=== PATIENT | male | born 1965 ===

== ENCOUNTER 2016-12-28 20:39 | Inpatient (IN) | payer MEDICAID, MEDICARE ==
[2016-12-28 21:07] VITALS: BP 139/97
[2016-12-28] MEDS: Sodium Chloride 0.9% 1,000 ML IV SCH (22:04)
[2016-12-29 06:03] LABS: % EOSINOPHILS 1.3 % (0.0-5.0); % LYMPHOCYTES 20.2 % (20.0-50.0); % NEUTROPHILS 73.5 % (40.0-80.0); HEMATOCRIT 37.5 % (39.0-49.0); HEMOGLOBIN 12.5 gm/dL (13.2-17.3); MEAN CELL VOLUME 91.2 fl (80-99); MEAN CORPUSCULAR HEMOGLOBIN 30.4 pg (26.0-30.0); MEAN CORPUSCULAR HGB CONC 33.3 pg (28.0-36.0); MEAN PLATELET VOLUME 8.5 fl; NEUTROPHILE ABSOLUTE 5.5 Th/cmm (1.8-8.0); PLATELET COUNT 188 Th/cmm (150-400); RED BLOOD COUNT 4.12 Mil/cmm (4.30-5.70); WHITE BLOOD COUNT 7.5 Th/cmm (4.8-10.8)
[2016-12-29 06:27] LABS: ALKALINE PHOSPHATASE 59 U/L (34-104); ANION GAP 9.1 (7.0-16.0); BILIRUBIN,TOTAL 0.5 mg/dL (0.3-1.0); BUN - UREA NITROGEN 12 mg/dL (7-25); CALCIUM SERUM 9.2 mg/dL (8.6-10.3); CARBON DIOXIDE 26.6 mEq/L (21.0-31.0); CHLORIDE 107 mEq/L (98-107); CREATININE - SERUM 0.8 mg/dL (0.7-1.3); GLUCOSE 164 mg/dL (70-105); POTASSIUM SERUM 3.7 mEq/L (3.5-5.1); SGOT 35 U/L (13-39); SGPT/ALT 37 U/L (7-52); SODIUM SERUM 139 mEq/L (136-145)
--- NOTE | 2016-12-29 09:27 | General Progress Note ---
Subjective - Review of Systems Service Date: 12/29/16 Subjective: I can not breath well. Objective - Results Result Diagrams: 12/29/16 05:54 12/29/16 05:54 Recent Labs: Laboratory Last Values WBC 7.5 Th/cmm (4.8-10.8) 12/29/16 05:54 RBC 4.12 Mil/cmm (4.30-5.70) L 12/29/16 05:54 Hgb 12.5 gm/dL (13.2-17.3) L 12/29/16 05:54 Hct 37.5 % (39.0-49.0) L 12/29/16 05:54 MCV 91.2 fl (80-99) 12/29/16 05:54 MCH 30.4 pg (26.0-30.0) H 12/29/16 05:54 MCHC Differential 33.3 pg (28.0-36.0) 12/29/16 05:54 RDW 13.0 % (11.5-20.0) 12/29/16 05:54 Plt Count 188 Th/cmm (150-400) 12/29/16 05:54 MPV 8.5 fl 12/29/16 05:54 Neutrophils % 73.5 % (40.0-80.0) 12/29/16 05:54 Lymphocytes % 20.2 % (20.0-50.0) 12/29/16 05:54 Monocytes % 5.0 % (2.0-10.0) 12/29/16 05:54 Eosinophils % 1.3 % (0.0-5.0) 12/29/16 05:54 Basophils % 0.0 % (0.0-2.0) 12/29/16 05:54 Sodium 139 mEq/L (136-145) 12/29/16 05:54 Potassium 3.7 mEq/L (3.5-5.1) 12/29/16 05:54 Chloride 107 mEq/L (98-107) 12/29/16 05:54 Carbon Dioxide 26.6 mEq/L (21.0-31.0) 12/29/16 05:54 Anion Gap 9.1 (7.0-16.0) 12/29/16 05:54 BUN 12 mg/dL (7-25) 12/29/16 05:54 Creatinine 0.8 mg/dL (0.7-1.3) 12/29/16 05:54 Est GFR ( Amer) > 60.0 ml/min (>90) 12/29/16 05:54 Est GFR (Non-Af Amer) > 60.0 ml/min 12/29/16 05:54 BUN/Creatinine Ratio 15.0 12/29/16 05:54 Glucose 164 mg/dL (70-105) H 12/29/16 05:54 Calcium 9.2 mg/dL (8.6-10.3) 12/29/16 05:54 Total Bilirubin 0.5 mg/dL (0.3-1.0) 12/29/16 05:54 AST 35 U/L (13-39) 12/29/16 05:54 ALT 37 U/L (7-52) 12/29/16 05:54 Alkaline Phosphatase 59 U/L (34-104) 12/29/16 05:54 B-Natriuretic Peptide 1560.0 pg/mL (5.0-100.0) H 12/29/16 05:54 Total Protein 6.3 gm/dL (6.0-8.3) 12/29/16 05:54 Albumin 3.2 gm/dL (4.2-5.5) L 12/29/16 05:54 Globulin 3.1 gm/dL 12/29/16 05:54 Albumin/Globulin Ratio 1.0 (1.0-1.8) 12/29/16 05:54 TSH 0.59 uIU/ml (0.34-5.60) 12/29/16 05:54 - Physical Exam Vitals and I&O: Vital Signs Temp 97.9 F 12/29/16 08:10 Pulse 70 12/29/16 08:56 Resp 16 12/29/16 08:10 BP 141/103 12/29/16 08:57 Pulse Ox 96 12/29/16 08:10 Intake & Output 12/28/16 12/29/16 12/29/16 18:59 06:59 18:59 Intake Total 360 Balance 360 Weight (lbs) 70 kg Intake: Oral 360 Other: # Voids 2 Active Medications: Current Medications Acetaminophen (Tylenol) 650 mg PO Q6H PRN PRN Reason: Pain or Fever >101 Stop: 02/26/17 22:06 Amlodipine Besylate (Norvasc) 5 mg PO DAILY [facility] Stop: 02/27/17 08:59 Last Admin: 12/29/16 08:56 Dose: 5 mg Clonidine HCl (Catapres) 0.1 mg PO Q8HR PRN PRN Reason: BP MAINTENANCE (PER PROTOCOL) Stop: 02/26/17 22:06 Furosemide (Lasix) 20 mg IVP DAILY [facility] Stop: 02/27/17 08:59 Last Admin: 12/29/16 08:57 Dose: 20 mg Sodium Chloride (Nacl 0.9%) 1,000 mls @ 75 mls/hr IV .[id number] [facility] Stop: 02/26/17 21:29 Last Admin: 12/28/16 22:04 Dose: 75 mls/hr Ondansetron HCl (Zofran) 4 mg IV Q6H PRN PRN Reason: Nausea / Vomiting Stop: 02/26/17 22:06 General: Alert, Oriented x3, Cooperative, Mild distress HEENT: Atraumatic Neck: Supple Cardiovascular: Regular rate Lungs: Clear to auscultation Abdomen: Bowel sounds Extremities: Other (No edema) Neurological: Normal gait Skin: Other (Warm and dry) Psych/Mental Status: Mental status NL Assessment/Plan - Assessment Assessment: Patient is awake, aler, calm, in some distress. Dx: CHF exacerbation, Uncontrolled HTN, Cocaine and methamphetamine user. - Plan Plan: Patient in NF, Lasix, amlodipine and clonidine. Cardiac consult requested.
--- NOTE | 2016-12-29 09:50 | Diagnostic Imaging Report ---
CHEST X-RAY: AP view INDICATION: CHF COMPARISON: None FINDINGS: No focal consolidation or radiographic evidence of CHF. Cardiomegaly is noted with atherosclerosis. The osseous structures are intact. IMPRESSION: No focal consolidation or radiographic evidence of CHF. Cardiomegaly and atherosclerotic vascular disease.
[2016-12-29] MEDS ORDERED: Potassium Chloride 20 mEq ER Tab PO ONE (12:28)
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
[2016-12-29] MEDS: Sodium Chloride 0.9% 1,000 ML IV SCH (13:57)
--- NOTE | 2016-12-29 18:59 | Cardiology ---
12/29/2016 ECHOCARDIOGRAM REPORT M-MODE ECHOCARDIOGRAM: Mitral valve, anterior leaflet of the mitral valve shows decreased excursion, EF velocity. Posterior leaflet of the mitral valve shows decreased excursion. Left ventricular posterior wall shows increased thickness, decreased excursion. Interventricular septum shows increased thickness, decreased excursion. There is hypertrophy of the left ventricle, ejection fraction 15%. Left atrium enlarged 4.02 cm. Aortic root shows normal dimension, normal excursion of aortic leaflets. CONCLUSION: Cardiomyopathy, minimal hypertrophy of the left ventricle. Left atrial enlargement, ejection fraction 15%. 2D ECHO: Long axis view shows enlarged left ventricular cavity with global hypokinesis, hypertrophy of the left ventricle. Left atrium enlarged. Aortic root shows normal dimension, normal excursion of aortic leaflets. Short axis view mitral valve normal, short axis aortic valve normal. Apical four chamber view shows enlarged left ventricular cavity with decreased ejection fraction. Left atrium enlarged. Right ventricular cavity, right atrium normal, no pericardial effusion. CONCLUSION: Hypertrophy of the left ventricle, cardiomyopathy, left atrial enlargement, ejection fraction 15%. Doppler study shows prominent A wave consistent with poor compliance of left ventricle. Moderate tricuspid regurgitation. [facility]# [id number]
--- NOTE | 2016-12-29 20:56 | Admit Criteria Form ---
Admit Criteria Forms - Admit Criteria Diagnosis: HEART FAILURE: COMMON COMPLICATIONS Clinical Indications for Inpatient Care (Place 'X' for any and all applicable criteria): Ongoing inpatient care may be indicated for heart failure with ANY ONE of the following (1)(2)(3)(4)(5): [ ]I. Ongoing need for care for primary condition requiring frequent therapy adjustments because of changes in cardiac function (eg, drug dosage changes for drugs that are renally metabolized) [ ]II. New-onset heart failure [ ]III. Heart failure with decreased urine output not responsive to attempts to optimize volume status [ ]IV. Acute cardiac ischemia causing or associated with failure [X]V. Complications of heart failure, including ANY ONE of the following: [ ]a) Pericardial effusion [ ]b) Symptomatic pleural effusion [ ]c) O2 saturation <90% or PO2 < 60 mm Hg (8.0 kPa) on room air or require baseline supplemental O2 [ ]d) Tachypnea [X]e) Dyspnea [ ]f) Syncope [ ]g) Change in mental status [ ]h) Acute renal insufficiency that is severe (reduction of more than 50% in estimated glomerular filtration rate from baseline) or progressive reduction of more than 25% in estimated glomerular filtration rate from baseline, with creatinine continuing to rise) [ ]i) Hemodynamic instability [ ]j) Anasarca [ ]k) Clinically significant metabolic abnormalities due to heart failure (eg, new-onset metabolic acidosis) Extended stay beyond goal length of stay for primary condition may be needed until ALL of the following are present(1)(3): [ ]a) Stable and effective diuretic regimen established (or patient on stable dialysis regimen if in chronic renal failure) [ ]b) Breathing comfortably at rest [ ]c) Saturation of arterial oxygen greater than 90% or at acceptable baseline [ ]d) Pulmonary edema absent or improved [ ]e) Hemodynamic stability [ ]f) Volume status acceptable on oral medication [ ]g) Peripheral or sacral edema absent or improved [ ]h) Renal function stable and manageable at a lower level of care [ ]i) Complications (eg, pleural effusion) resolved or manageable at a lower level of care [ ]j) Patient or caregiver has received written discharge instructions or educational material addressing activity level, diet, discharge medications, follow-up appointment, weight monitoring, and what to do if symptoms worsen The original [employer] content created by [employer] has been revised. The portions of the content which have been revised are identified through the use of italic text or in bold, and [employer] has neither reviewed nor approved the modified material.All other unmodified content is copyright [employer]. Please see references footnoted in the original [employer] edition 2016 Admit Criteria Met?: Yes
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
[2016-12-30 07:03] LABS: % BASOPHILS 0.1 % (0.0-2.0); % EOSINOPHILS 1.4 % (0.0-5.0); % LYMPHOCYTES 22.9 % (20.0-50.0); % MONOCYTES 6.2 % (2.0-10.0); % NEUTROPHILS 69.4 % (40.0-80.0); HEMATOCRIT 42.7 % (39.0-49.0); HEMOGLOBIN 13.8 gm/dL (13.2-17.3); MEAN CELL VOLUME 91.2 fl (80-99); MEAN CORPUSCULAR HEMOGLOBIN 29.6 pg (26.0-30.0); MEAN CORPUSCULAR HGB CONC 32.5 pg (28.0-36.0); MEAN PLATELET VOLUME 9.1 fl; NEUTROPHILE ABSOLUTE 6.2 Th/cmm (1.8-8.0); PLATELET COUNT 222 Th/cmm (150-400); RED BLOOD COUNT 4.68 Mil/cmm (4.30-5.70); RED CELL DISTRIBUTION WIDTH 12.9 % (11.5-20.0)
[2016-12-30 07:26] LABS: ALKALINE PHOSPHATASE 60 U/L (34-104); ANION GAP 11.3 (7.0-16.0); BILIRUBIN,TOTAL 0.6 mg/dL (0.3-1.0); BUN - UREA NITROGEN 12 mg/dL (7-25); BUN/CREATININE RATIO 13.3; CALCIUM SERUM 9.3 mg/dL (8.6-10.3); CARBON DIOXIDE 26.4 mEq/L (21.0-31.0); CHLORIDE 104 mEq/L (98-107); CREATININE - SERUM 0.9 mg/dL (0.7-1.3); GLUCOSE 152 mg/dL (70-105); POTASSIUM SERUM 3.7 mEq/L (3.5-5.1); SGOT 37 U/L (13-39); SGPT/ALT 39 U/L (7-52); SODIUM SERUM 138 mEq/L (136-145)
--- NOTE | 2016-12-30 09:14 | General Progress Note ---
Subjective - Review of Systems Service Date: 12/30/16 Subjective: I fell better Objective - Results Result Diagrams: 12/30/16 06:00 12/30/16 06:00 Recent Labs: Laboratory Last Values WBC 9.0 Th/cmm (4.8-10.8) 12/30/16 06:00 RBC 4.68 Mil/cmm (4.30-5.70) 12/30/16 06:00 Hgb 13.8 gm/dL (13.2-17.3) 12/30/16 06:00 Hct 42.7 % (39.0-49.0) D 12/30/16 06:00 MCV 91.2 fl (80-99) 12/30/16 06:00 MCH 29.6 pg (26.0-30.0) 12/30/16 06:00 MCHC Differential 32.5 pg (28.0-36.0) 12/30/16 06:00 RDW 12.9 % (11.5-20.0) 12/30/16 06:00 Plt Count 222 Th/cmm (150-400) 12/30/16 06:00 MPV 9.1 fl 12/30/16 06:00 Neutrophils % 69.4 % (40.0-80.0) 12/30/16 06:00 Lymphocytes % 22.9 % (20.0-50.0) 12/30/16 06:00 Monocytes % 6.2 % (2.0-10.0) 12/30/16 06:00 Eosinophils % 1.4 % (0.0-5.0) 12/30/16 06:00 Basophils % 0.1 % (0.0-2.0) 12/30/16 06:00 Sodium 138 mEq/L (136-145) 12/30/16 06:00 Potassium 3.7 mEq/L (3.5-5.1) 12/30/16 06:00 Chloride 104 mEq/L (98-107) 12/30/16 06:00 Carbon Dioxide 26.4 mEq/L (21.0-31.0) 12/30/16 06:00 Anion Gap 11.3 (7.0-16.0) 12/30/16 06:00 BUN 12 mg/dL (7-25) 12/30/16 06:00 Creatinine 0.9 mg/dL (0.7-1.3) 12/30/16 06:00 Est GFR ( Amer) > 60.0 ml/min (>90) 12/30/16 06:00 Est GFR (Non-Af Amer) > 60.0 ml/min 12/30/16 06:00 BUN/Creatinine Ratio 13.3 12/30/16 06:00 Glucose 152 mg/dL (70-105) H 12/30/16 06:00 Calcium 9.3 mg/dL (8.6-10.3) 12/30/16 06:00 Magnesium 1.7 mg/dL (1.9-2.7) L 12/30/16 06:00 Total Bilirubin 0.6 mg/dL (0.3-1.0) 12/30/16 06:00 AST 37 U/L (13-39) 12/30/16 06:00 ALT 39 U/L (7-52) 12/30/16 06:00 Alkaline Phosphatase 60 U/L (34-104) 12/30/16 06:00 B-Natriuretic Peptide 1660.0 pg/mL (5.0-100.0) H 12/30/16 06:00 Total Protein 6.9 gm/dL (6.0-8.3) 12/30/16 06:00 Albumin 3.4 gm/dL (4.2-5.5) L 12/30/16 06:00 Globulin 3.5 gm/dL 12/30/16 06:00 Albumin/Globulin Ratio 1.0 (1.0-1.8) 12/30/16 06:00 TSH 0.59 uIU/ml (0.34-5.60) 12/29/16 05:54 - Physical Exam Vitals and I&O: Vital Signs Temp 98.9 F 12/29/16 20:00 Pulse 84 12/30/16 08:40 Resp 20 12/30/16 04:00 BP 115/75 12/30/16 08:50 Pulse Ox 99 12/29/16 20:00 Intake & Output 12/29/16 12/30/16 12/30/16 18:59 06:59 18:59 Intake Total 2650 Balance 2650 Intake: Intake, IV Amount 1000 Sodium Chloride 0.9% 1, 1000 000 ml @ 75 mls/hr IV . [id number] [facility] Rx#:[id number] Oral 1650 Other: # Voids 2,700 Active Medications: Current Medications Acetaminophen (Tylenol) 650 mg PO Q6H PRN PRN Reason: Pain or Fever >101 Stop: 02/26/17 22:06 Amlodipine Besylate (Norvasc) 5 mg PO DAILY [facility] Stop: 02/27/17 08:59 Last Admin: 12/30/16 08:40 Dose: Not Given Clonidine HCl (Catapres) 0.1 mg PO Q8HR PRN PRN Reason: BP MAINTENANCE (PER PROTOCOL) Stop: 02/26/17 22:06 Furosemide (Lasix) 40 mg IVP BID [facility] Stop: 02/27/17 16:59 Last Admin: 12/30/16 08:50 Dose: 40 mg Sodium Chloride (Nacl 0.9%) 1,000 mls @ 75 mls/hr IV .[id number] [facility] Stop: 02/26/17 21:29 Last Admin: 12/29/16 13:57 Dose: 75 mls/hr Ondansetron HCl (Zofran) 4 mg IV Q6H PRN PRN Reason: Nausea / Vomiting Stop: 02/26/17 22:06 General: Alert, Oriented x3, Cooperative, No acute distress HEENT: Atraumatic Neck: Supple Cardiovascular: Regular rate Lungs: Clear to auscultation Abdomen: Bowel sounds, Soft Extremities: Other (No edema) Neurological: Normal gait Skin: Other (Warm and dry) Psych/Mental Status: Mental status NL Assessment/Plan - Assessment Assessment: Patient is awake, aler, calm, in no distress. Dx: CHF exacerbation, Uncontrolled HTN, Cocaine and methamphetamine user. - Plan Plan: Patient in NS, Lasix, amlodipine and clonidine. BP in better control. Will continue to monitor,
[2016-12-30] MEDS ORDERED: Potassium Chloride 20 mEq ER Tab PO ONE (16:30)
[2016-12-30] MEDS: Sodium Chloride 0.9% 1,000 ML IV SCH (16:42)
[2016-12-31 05:43] LABS: % BASOPHILS 1.3 % (0.0-2.0); % EOSINOPHILS 2.1 % (0.0-5.0); % LYMPHOCYTES 27.5 % (20.0-50.0); % MONOCYTES 9.6 % (2.0-10.0); % NEUTROPHILS 59.5 % (40.0-80.0); HEMATOCRIT 45.6 % (39.0-49.0); MEAN CELL VOLUME 90.2 fl (80-99); MEAN CORPUSCULAR HEMOGLOBIN 29.6 pg (26.0-30.0); MEAN CORPUSCULAR HGB CONC 32.8 pg (28.0-36.0); MEAN PLATELET VOLUME 8.5 fl; NEUTROPHILE ABSOLUTE 5.3 Th/cmm (1.8-8.0); PLATELET COUNT 236 Th/cmm (150-400); RED BLOOD COUNT 5.06 Mil/cmm (4.30-5.70); RED CELL DISTRIBUTION WIDTH 13.1 % (11.5-20.0); WHITE BLOOD COUNT 8.8 Th/cmm (4.8-10.8)
[2016-12-31 05:52] LABS: ALKALINE PHOSPHATASE 61 U/L (34-104); ANION GAP 9.4 (7.0-16.0); BILIRUBIN,TOTAL 0.6 mg/dL (0.3-1.0); BUN - UREA NITROGEN 15 mg/dL (7-25); BUN/CREATININE RATIO 16.7; CALCIUM SERUM 9.7 mg/dL (8.6-10.3); CARBON DIOXIDE 26.9 mEq/L (21.0-31.0); CHLORIDE 105 mEq/L (98-107); CREATININE - SERUM 0.9 mg/dL (0.7-1.3); GLUCOSE 95 mg/dL (70-105); POTASSIUM SERUM 4.3 mEq/L (3.5-5.1); SGOT 42 U/L (13-39); SGPT/ALT 42 U/L (7-52); SODIUM SERUM 137 mEq/L (136-145)
[2016-12-31] MEDS: Sodium Chloride 0.9% 1,000 ML IV SCH (08:50)
--- NOTE | 2016-12-31 13:40 | General Progress Note ---
Subjective - Review of Systems Service Date: 12/31/16 Subjective: I fell better Objective - Results Result Diagrams: 12/31/16 05:15 12/31/16 05:15 Recent Labs: Laboratory Last Values WBC 8.8 Th/cmm (4.8-10.8) 12/31/16 05:15 RBC 5.06 Mil/cmm (4.30-5.70) 12/31/16 05:15 Hgb 15.0 gm/dL (13.2-17.3) 12/31/16 05:15 Hct 45.6 % (39.0-49.0) 12/31/16 05:15 MCV 90.2 fl (80-99) 12/31/16 05:15 MCH 29.6 pg (26.0-30.0) 12/31/16 05:15 MCHC Differential 32.8 pg (28.0-36.0) 12/31/16 05:15 RDW 13.1 % (11.5-20.0) 12/31/16 05:15 Plt Count 236 Th/cmm (150-400) 12/31/16 05:15 MPV 8.5 fl 12/31/16 05:15 Neutrophils % 59.5 % (40.0-80.0) 12/31/16 05:15 Lymphocytes % 27.5 % (20.0-50.0) 12/31/16 05:15 Monocytes % 9.6 % (2.0-10.0) 12/31/16 05:15 Eosinophils % 2.1 % (0.0-5.0) 12/31/16 05:15 Basophils % 1.3 % (0.0-2.0) 12/31/16 05:15 Sodium 137 mEq/L (136-145) 12/31/16 05:15 Potassium 4.3 mEq/L (3.5-5.1) 12/31/16 05:15 Chloride 105 mEq/L (98-107) 12/31/16 05:15 Carbon Dioxide 26.9 mEq/L (21.0-31.0) 12/31/16 05:15 Anion Gap 9.4 (7.0-16.0) 12/31/16 05:15 BUN 15 mg/dL (7-25) 12/31/16 05:15 Creatinine 0.9 mg/dL (0.7-1.3) 12/31/16 05:15 Est GFR ( Amer) > 60.0 ml/min (>90) 12/31/16 05:15 Est GFR (Non-Af Amer) > 60.0 ml/min 12/31/16 05:15 BUN/Creatinine Ratio 16.7 12/31/16 05:15 Glucose 95 mg/dL (70-105) 12/31/16 05:15 Calcium 9.7 mg/dL (8.6-10.3) 12/31/16 05:15 Magnesium 1.7 mg/dL (1.9-2.7) L 12/30/16 06:00 Total Bilirubin 0.6 mg/dL (0.3-1.0) 12/31/16 05:15 AST 42 U/L (13-39) H 12/31/16 05:15 ALT 42 U/L (7-52) 12/31/16 05:15 Alkaline Phosphatase 61 U/L (34-104) 12/31/16 05:15 B-Natriuretic Peptide 1240.0 pg/mL (5.0-100.0) H 12/31/16 05:15 Total Protein 7.2 gm/dL (6.0-8.3) 12/31/16 05:15 Albumin 3.5 gm/dL (4.2-5.5) L 12/31/16 05:15 Globulin 3.7 gm/dL 12/31/16 05:15 Albumin/Globulin Ratio 1.0 (1.0-1.8) 12/31/16 05:15 TSH 0.59 uIU/ml (0.34-5.60) 12/29/16 05:54 - Physical Exam Vitals and I&O: Vital Signs Temp 98.3 F 12/31/16 08:00 Pulse 74 12/31/16 08:49 Resp 16 12/31/16 08:00 BP 101/68 12/31/16 08:49 Pulse Ox 93 12/31/16 08:00 Intake & Output 12/30/16 12/31/16 12/31/16 18:59 06:59 18:59 Intake Total 1100 2200 Output Total 1999 Balance -900 2200 Intake: Intake, IV Amount 1000 Sodium Chloride 0.9% 1, 1000 000 ml @ 75 mls/hr IV . [id number] [facility] Rx#:[id number] Oral 1100 1200 Output: Urine 2000 Other: # Voids 2 Active Medications: Current Medications Acetaminophen (Tylenol) 650 mg PO Q6H PRN PRN Reason: Pain or Fever >101 Stop: 02/26/17 22:06 Amlodipine Besylate (Norvasc) 5 mg PO DAILY [facility] Stop: 02/27/17 08:59 Last Admin: 12/31/16 08:49 Dose: Not Given Clonidine HCl (Catapres) 0.1 mg PO Q8HR PRN PRN Reason: BP MAINTENANCE (PER PROTOCOL) Stop: 02/26/17 22:06 Furosemide (Lasix) 40 mg IVP BID [facility] Stop: 02/27/17 16:59 Last Admin: 12/31/16 08:49 Dose: 40 mg Sodium Chloride (Nacl 0.9%) 1,000 mls @ 75 mls/hr IV .[id number] [facility] Stop: 02/26/17 21:29 Last Admin: 12/31/16 08:50 Dose: 75 mls/hr Metolazone (Zaroxolyn) 5 mg PO DAILY [facility] Stop: 03/01/17 08:59 Last Admin: 12/31/16 08:50 Dose: Not Given Ondansetron HCl (Zofran) 4 mg IV Q6H PRN PRN Reason: Nausea / Vomiting Stop: 02/26/17 22:06 General: Alert, Oriented x3, Cooperative, No acute distress HEENT: Atraumatic Neck: Supple Cardiovascular: Regular rate Lungs: Clear to auscultation Abdomen: Bowel sounds, Soft Extremities: Other (No edema) Neurological: Normal gait Skin: Other (Warm and dry) Psych/Mental Status: Mental status NL Assessment/Plan - Assessment Assessment: Patient is awake, aler, calm, in no distress. Dx: CHF exacerbation, Uncontrolled HTN, Cocaine and methamphetamine user. - Plan Plan: Patient in NS, Lasix, amlodipine and clonidine. BP in control. patient will be discharge.
== END 2016-12-31 17:00 | DRG 194 ==
LOC: TELE 20:39
PROVIDERS: ADMIT General Practice; ATTEND General Practice
DX: I11.0 Hypertensive heart disease with heart failure (principal); I42.7 Cardiomyopathy due to drug and external agent; E44.1 Mild protein-calorie malnutrition; I50.23 Acute on chronic systolic (congestive) heart failure; F14.90 Cocaine use, unspecified, uncomplicated; F15.90 Other stimulant use, unspecified, uncomplicated; Z59.0 Homelessness
CPT/HCPCS: 36415-UA; 71010-TC; 80053-TC; 83735-TC; 83880-TC; 84443-TC; 85025-TC; J1940; J7030